=== PATIENT | female | born 1945 | race Caucasian/White ===

== ENCOUNTER → 2018-03-20 | Outpatient (CLI) | payer OTHER | END | disposition home or self-care (01) | LOC: KCIC MRI 09:02 | DX: M75.121 Complete rotator cuff tear or rupture of right shoulder, not specified as traumatic (principal); M19.011 Primary osteoarthritis, right shoulder | CPT/HCPCS: 73221 ==

== ENCOUNTER 2018-04-09 05:49 | Day surgery (SDC) | payer OTHER ==
[2018-04-09] MEDS ORDERED: EPINEPHrine VIAL 30 MG/30 ML VIAL (06:32)
[2018-04-09] MEDS ORDERED: LIDOCAINE 1% PF 30 ML VIAL. (06:33)
[2018-04-09] MEDS ORDERED: BUPIVACAINE 0.5% 50 ML VIAL. ×2 (06:33→06:50)
[2018-04-09] MEDS ORDERED: EPINEPHrine 1 MG/ML VIAL (06:50)
[2018-04-09] MEDS ORDERED: MIDAZOLAM HCL/PF 2 MG/2 ML VIAL. (06:50)
[2018-04-09] MEDS ORDERED: LIDOCAINE 1% PF 2 ML VIAL. ID (07:00)
[2018-04-09] MEDS ORDERED: fentaNYL PF VIAL 100 MCG/2 ML VIAL IV ×2 (07:00)
[2018-04-09] MEDS ORDERED: PROCHLORPERAZINE 10 MG/2 ML VIAL. IV (07:00)
[2018-04-09] MEDS ORDERED: ONDANSETRON PF 4 MG/2 ML VIAL. IV (07:00)
[2018-04-09] MEDS: IV RINGERS,LACTATED 1000ML 1,000 ML IV (07:03)
[2018-04-09] MEDS ORDERED: ROCURONIUM 50 MG/5 ML VIAL. (07:16)
[2018-04-09] MEDS ORDERED: PROPOFOL 20 ML IV (07:17)
[2018-04-09] MEDS ORDERED: PHENYLEPHRINE 10 MG/ML VIAL. (07:17)
[2018-04-09] MEDS ORDERED: ONDANSETRON PF 4 MG/2 ML VIAL. (07:17)
[2018-04-09] MEDS ORDERED: DESFLURANE > 120 MINUTES IH (07:17)
[2018-04-09] MEDS ORDERED: DEXAMETHASONE SOD PHOS 20 MG/5 ML VIAL. (07:17)
[2018-04-09] MEDS ORDERED: fentaNYL PF VIAL 100 MCG/2 ML VIAL (07:17)
[2018-04-09] MEDS ORDERED: LIDOCAINE 2% PF Vial for OR 5 ML VIAL. (07:17)
[2018-04-09 07:20] LABS: POC GLUCOSE 116 mg/dL (70-99)
[2018-04-09] MEDS ORDERED: hydrALAZINE 20 MG/ML VIAL. (08:49)
[2018-04-09] MEDS: oxyCODONE/APAP 5/325 1 TAB TABLET PO (09:52)
== END 2018-04-09 10:31 | disposition home or self-care (01) ==
LOC: SURG 05:49
DX: S46.011A Strain of muscle(s) and tendon(s) of the rotator cuff of right shoulder, initial encounter (principal); I10 Essential (primary) hypertension; E11.9 Type 2 diabetes mellitus without complications; M19.90 Unspecified osteoarthritis, unspecified site; K21.9 Gastro-esophageal reflux disease without esophagitis; F41.9 Anxiety disorder, unspecified; F32.9 Major depressive disorder, single episode, unspecified; S43.491A Other sprain of right shoulder joint, initial encounter; E05.90 Thyrotoxicosis, unspecified without thyrotoxic crisis or storm; J30.2 Other seasonal allergic rhinitis; Z98.890 Other specified postprocedural states; V89.2XXA Person injured in unspecified motor-vehicle accident, traffic, initial encounter; Y93.89 Activity, other specified; Y92.89 Other specified places as the place of occurrence of the external cause; Y99.8 Other external cause status; Z82.49 Family history of ischemic heart disease and other diseases of the circulatory system; Z83.3 Family history of diabetes mellitus; Z79.899 Other long term (current) drug therapy; Z88.5 Allergy status to narcotic agent; Z98.42 Cataract extraction status, left eye; Z98.41 Cataract extraction status, right eye; Z79.84 Long term (current) use of oral hypoglycemic drugs
CPT/HCPCS: 29827; 82962; A7015; C1713; C1782; J0171; J0360; J0690; J1100; J2250; J2405; J2704; J3010; J3490